=== PATIENT | male | born 1955 | race Caucasian/White ===

== ENCOUNTER 2022-04-25 13:04 | Emergency (ER) | payer SELFPAY ==
[~2022-04-25] VITALS: Ht 188 cm; Wt 98.0 kg
[2022-04-25 14:19] VITALS: BP 123/41
[2022-04-25 14:23] VITALS: BP 124/85
[2022-04-25 14:31] VITALS: BP 142/41
[2022-04-25 14:47] VITALS: BP 180/59
[2022-04-25] MEDS ORDERED: ACETAMINOPHEN325 MG PO (14:48)
[2022-04-25 15:05] VITALS: BP 180/59
[2022-04-25 15:14] LABS: ALBUMIN 4.6 g/dL (3.2-5.0); ALKALINE PHOSPHATASE 58 u/l (38-126); BILIRUBIN, TOTAL 0.3 mg/dL (0.0-1.4); BUN 58 mg/dL (8-23); BUN/CREATININE RATIO 38 (12-20 (CALC)); CARBON DIOXIDE 28 mmol/l (22-30); CHLORIDE 106 mmol/l (95-108); CREATININE 1.5 mg/dL (0.7-1.3); GFR FOR AFR.AMER. 56 ML/MIN (>=60 (CALC)); GFR OTHER RACES 47 ML/MIN (>=60 (CALC)); SGOT/AST 27 u/l (19-48); SODIUM 141 mmol/l (137-146); TOTAL PROTEIN 7.7 g/dL (6.3-8.2)
[2022-04-25 15:16] LABS: ANION GAP 12 (6-22 (CALC)); POTASSIUM 5.3 mmol/l (3.5-5.1)
[2022-04-25 15:18] LABS: BASO% 0.6 % (0-3); EOS% 2.7 % (0-8); HEMATOCRIT 38.6 % (39.0-50.0); HEMOGLOBIN 12.4 g/dl (14.0-18.0); IMMATURE GRANULOCYTES 0.1 % (0.0-5.0); LYMPH% 22.6 % (15-41); MEAN CELL VOLUME 87.7 fL CALC (80.0-100.0); MEAN CORPUSCULAR HGB 28.2 pG CALC (26.0-32.0); MEAN CORPUSCULAR HGB CONC 32.1 g/dL CAL (32.0-36.0); MONO% 8.9 % (2-13); NEUT# 5.59 thou/uL (1.82-7.42); NEUT% 65.1 % (42-76); RED BLOOD COUNT 4.4 mill/uL (4.70-6.10); RED CELL DISTRI WIDTH 13.5 % (11.5-15.5)
== END 2022-04-25 15:02 | disposition left against medical advice (07) | DRG 310 ==
LOC: ED 13:04
PROVIDERS: Family Medicine
DX: I44.1 Atrioventricular block, second degree (principal); Z53.29 Procedure and treatment not carried out because of patient's decision for other reasons; I10 Essential (primary) hypertension; R42 Dizziness and giddiness